=== PATIENT | female | born 1980 | race Hispanic/Latino ===

== ENCOUNTER → 2020-04-10 | Outpatient (CLI) | payer OTHER, MEDICAID | LOC: DAH 10:00 → EDSTATUS 04-13 08:15 | PROVIDERS: ATTEND Internal Medicine Gastroenterology | DX: Z01.818 Encounter for other preprocedural examination (principal); K31.84 Gastroparesis; Z11.59 Encounter for screening for other viral diseases | CPT/HCPCS: 36415; U0003 ==